=== PATIENT | male | born 1990 | race Caucasian/White ===

== ENCOUNTER 2016-12-18 15:14 | Emergency (ER) | payer BC, OTHER ==
[2016-12-18] MEDS ORDERED: LIDOCAINE HCL/EPINEPHRINE 30 ML VIAL IJ ONE (16:02)
--- NOTE | 2016-12-18 16:48 | ERNOTE ---
Medical Problem HPI - Narrative Date of Service: 12/18/16 - General Chief Complaint: Laceration Time Seen by Provider: 12/18/16 15:55 Source: patient, family, RN notes reviewed Exam Limitations: no limitations - Immun/Allergies/Home Medications Immunizations: IMMUNIZATION HX Immunizations Up to Date Yes Allergies/Adverse Reactions: Allergies No Known Allergies Allergy (Unverified 12/18/16 15:45) Home Medications: HOME MEDICATIONS NK [No Home Medication] 12/18/16 [Last Taken Unknown] - History of Present History Narrative: 26 y/o male ambulatory to the ED for a forehead laceration that occurred at home earlier this afternoon. He accidentally struck himself in the head with a ratchet. He denies any LOC and denies pain. He denies any other injuries. Date (Duration): 12/18/16 Time (Timing): 14:00 Review of Systems - Review of Systems Constitutional: Present: no symptoms reported EYE: Absent: eye pain, eye discharge, blurred vision ENT: Absent: ear discharge, nasal drainage Respiratory: Present: no symptoms reported Cardiology: Present: no symptoms reported Gastrointestinal/Abdominal: Absent: nausea, vomiting Genitourinary: Present: no symptoms reported Musculoskeletal: Absent: muscle pain, neck pain Skin: Absent: lesions, lumps, change in color Neurological: Absent: headache, dizziness/light-headedness Endocrine: Present: no symptoms reported Hematologic/Lymphatic: Absent: easy bruising, easy bleeding Psych: Present: no symptoms reported - Patient's Past Medical History Patient History - Medical: No pertinent hx Patient History - Cardiac/Respiratory: No pertinent hx Patient History - Cancer: No Hx of Cancer Patient History - Surgical Procedures: No surgical history Patient History - Other: None - Social History Living Situations: spouse Psych History: No pertinent hx Smoking Status: Never smoker Alcohol Use: none Drug Use: none - Immunizations Immunizations Up to Date: Yes Physical Exam - Physical Exam General Appearance: Present: wd/wn, alert, no apparent distress Eye Exam: Normal inspection: bilateral, PERRL: bilateral, EOMI: bilateral Ears, Nose, Throat: Present: normal ENT inspection Neck: Present: normal inspection, nontender, supple, full range of motion Respiratory: Present: no respiratory distress, normal breath sounds, no accessory muscle use, lungs clear Cardiovascular/Chest: Present: regular rate, rhythm, no murmur Neurological Exam: Present: alert, oriented, normal mood/affect, no motor/ sensory deficits Skin Exam: Present: normal color, warm/dry, other - small laceration at media aspect of left brow ED Progress - Vital Signs Patient's Vital Signs:: I have reviewed the patient's vital signs. Vital Signs: Vital Signs 12/18/16 15:36 Temperature 37.0 C Pulse Rate 83 Respiratory 12 Rate Blood Pressure 143/74 O2 Sat by Pulse 100 Oximetry - Progress/Reassessment Chief Complaint: Laceration Progress:: Improved Procedures Forehead - medial edge of left eyebrow Anesthesia: Lidocaine w/ Epi Length of Repair/Wound (cm): 2 Wound's Depth/Shape: into subcutaneous, irregular, contused tissue Wound Explored: clean, to base, in bloodless field, no foreign body Wound Intervention: irrigated w/saline, multiple flaps aligned Distal NVT: neuro/vasc intact Wound Repaired With: sutures Suture Size/Type: 6-0, nylon Number of Sutures: 4 Layer Closure: Simple Wound Dressing: sterile dressing applied Complications: Pt terrence procedure well Departure - Departure Clinical Impression: Forehead laceration Qualifiers: Encounter type: initial encounter Qualified Code(s): S01.81XA - Laceration without foreign body of other part of head, initial encounter Disposition: Home Follow Up Needed Condition: Good Instructions: Sutured Wound Care, [id number] Additional Instructions: Keep wound dry and keep bandage in place for 24 hours Can then wash wound gently with soap and water Apply antibiotic ointment twice a day Have sutures removed in 5 days Avoid sunburn
[2016-12-18 16:57] VITALS: BP 128/69
== END 2016-12-18 17:02 | disposition home or self-care (01) ==
LOC: ER 15:14
PROC: 0JQ10ZZ Repair Face Subcutaneous Tissue and Fascia, Open Approach (ICD-10-PCS; principal; 2016-12-18)
DX: S01.81XA Laceration without foreign body of other part of head, initial encounter (principal); X58.XXXA Exposure to other specified factors, initial encounter; Y93.9 Activity, unspecified; Y92.009 Unspecified place in unspecified non-institutional (private) residence as the place of occurrence of the external cause